=== PATIENT | male | born 1975 | race Two or more races ===

== ENCOUNTER 2022-10-16 10:18 | Emergency (ER) | payer MEDICAID ==
[~2022-10-16] VITALS: Ht 175.3 cm; Wt 67.7 kg
[2022-10-16 11:40] VITALS: BP 140/85
[2022-10-16] MEDS ORDERED: HYDROcodone-ACET 5/325MG TAB PO ONE (12:00)
[2022-10-16] MEDS ORDERED: HYDR-4902 PO (12:01)
== END 2022-10-16 12:34 | disposition home or self-care (01) ==
LOC: ER 10:18
DX: S52.591A Other fractures of lower end of right radius, initial encounter for closed fracture (principal); W01.0XXA Fall on same level from slipping, tripping and stumbling without subsequent striking against object, initial encounter; Y93.89 Activity, other specified; Y92.89 Other specified places as the place of occurrence of the external cause; Y99.8 Other external cause status
CPT/HCPCS: 29125; 73110